=== PATIENT | female | born 1995 | race Caucasian/White ===

== ENCOUNTER 2018-03-08 20:56 | Emergency (ER) | payer OTHER ==
[~2018-03-08] VITALS: Ht 167.6 cm; Wt 107.0 kg
[2018-03-08 20:58] VITALS: Ht 167.6 cm; Wt 107.0 kg
[2018-03-09 00:48] VITALS: BP 125/79
== END 2018-03-09 00:48 | disposition home or self-care (01) ==
LOC: ED 20:56
DX: A08.4 Viral intestinal infection, unspecified (principal); K21.9 Gastro-esophageal reflux disease without esophagitis
CPT/HCPCS: Q0162